=== PATIENT | female | born 1985 | race Caucasian/White ===

== ENCOUNTER 2018-06-27 09:49 | Inpatient (IN) | payer OTHER ==
[~2018-06-27] VITALS: Ht 180.3 cm; Wt 68.7 kg
[2018-06-27] MEDS ORDERED: QUET1TAB8 PO (09:57)
[2018-06-27] MEDS ORDERED: PANT40TA3 PO (09:57)
[2018-06-27] MEDS ORDERED: FOLI800C PO (09:57)
[2018-06-27] MEDS ORDERED: SERT-155 PO (09:57)
[2018-06-27] MEDS ORDERED: CLON2TAB7 PO (09:57)
[2018-06-27] MEDS ORDERED: NS 1,000 ML IV ONE (10:30)
[2018-06-27] MEDS ORDERED: PROMETHAZINE INJ 25 MG/ML VIAL (J2550) IV ONE (10:45)
[2018-06-27 11:00] LABS: BASO % 0.1 % (0.0-1.0); EOS # 0.1 10^3/uL (0.0-0.50); EOS % 0.7 % (0.0-3.0); HEMATOCRIT 38.9 % (36.0-47.0); HEMOGLOBIN 14.3 g/dl (12.0-15.5); LYMPH # 0.3 10^3/uL (1.5-4.5); MEAN CORPUSCULAR HEMOGLOBIN 33.7 pg (27.0-33.0); MEAN CORPUSCULAR VOLUME 91.7 fl (80.0-96.0); MONO # 0.7 10^3/uL (0.0-0.8); MONO % 9.7 % (0.0-5.0); NEUTROPHILS # 5.8 10^3/uL (1.8-7.7); NEUTROPHILS % 85.3 % (36.0-66.0); RED BLOOD COUNT 4.24 10^6/uL (4.00-5.40); WHITE BLOOD COUNT 6.8 10^3/uL (4.0-10.0)
[2018-06-27 11:28] LABS: MEAN CORPUSCULAR HGB CONC 36.8 g/dl (32.0-36.5); PLATELET COUNT, AUTOMATED 58 10^3/uL (150-450)
[2018-06-27 11:29] LABS: LYMPH % 3.8 % (24.0-44.0)
[2018-06-27 11:44] LABS: ALBUMIN 4.1 GM/DL (3.2-5.2); ALT/SGPT 160 U/L (12-78); BILIRUBIN,DIRECT 0.9 MG/DL (0.0-0.2); BILIRUBIN,TOTAL 2.1 MG/DL (0.2-1.0); BLOOD UREA NITROGEN 21 MG/DL (7-18); CALCIUM LEVEL 8.7 MG/DL (8.5-10.1); CARBON DIOXIDE LEVEL 27 MEQ/L (21-32); CHLORIDE LEVEL 75 MEQ/L (98-107); CREATININE FOR GFR 1.12 MG/DL (0.55-1.30); GLOMERULAR FILTRATION RATE 59.6 (>60); GLUCOSE, FASTING 123 MG/DL (70-100); LIPASE 2462 U/L (73-393); POTASSIUM SERUM 2.9 MEQ/L (3.5-5.1); SODIUM LEVEL 123 MEQ/L (136-145); TOTAL PROTEIN 8.4 GM/DL (6.4-8.2)
[2018-06-27 12:10] LABS: HCG, SERUM QUALITATIVE NEGATIVE (NEGATIVE)
[2018-06-27] MEDS ORDERED: POTASSIUM CHL PWD 20 MEQ PACKET As Ordered ONE (12:14)
[2018-06-27] MEDS: POTASSIUM CHLORIDE 10 MEQ SR TABLET PO ONE ×2 (12:17→12:37)
--- NOTE | 2018-06-27 12:40 | REP ---
Clinical: Pancreatitis. Technique: Real time lopez scale ultrasound examination using curved array transducer. Findings: Evidence of prior cholecystectomy. No biliary ductal dilatation is appreciated and the common bile duct measures 4.5 mm diameter. Liver is mildly increased echogenicity suggesting fatty infiltration without focal hepatic lesion. The pancreas is incompletely evaluated due to interposed bowel gas but visualized portions appear normal. The right kidney is normal in reniform shape without hydronephrosis and measures 12.2 x 4.8 x 5.0 cm. No ascites. Impression: No biliary ductal dilatation. No obvious choledocholithiasis. Hepatosteatosis. Electronically Signed by Sixto Lowry MD 06/27/2018 12:32 P
[2018-06-27] MEDS ORDERED: FOLI400T PO (13:26)
[2018-06-27] MEDS ORDERED: SERT-138 PO (13:26)
[2018-06-27] MEDS ORDERED: CLON1TAB8 PO (13:26)
[2018-06-27 13:29] LABS: OSMOLALITY SERUM 286 MOSM/KG (275-295)
[2018-06-27] MEDS ORDERED: ONDANSETRON 4MG/2ML VIAL (J2405) As Ordered ONE (13:33)
[2018-06-27 13:45] LABS: ACETAMINOPHEN LEVEL < 2.0 UG/ML (10.0-30.0); ETHYL ALCOHOL (ETHANOL) < 0.003 % (0.000-0.010); FREE T4 0.83 NG/DL (0.76-1.46); LDH LACTATE DEHYDROGENASE 261 U/L (84-246); MAGNESIUM LEVEL 1.4 MG/DL (1.8-2.4); PHOSPHORUS LEVEL 1.3 MG/DL (2.5-4.9); SALICYLATE LEVEL < 1.7 MG/DL (5.0-30.0)
[2018-06-27] MEDS ORDERED: ONDANSETRON 4MG/2ML VIAL (J2405) IV ONE (13:45)
[2018-06-27 13:54] LABS: AMPHETAMINES LEVEL URINE NEGATIVE (NEGATIVE); BARBITURATES URINE NEGATIVE (NEGATIVE); BENZODIAZEPINES URINE NEGATIVE (NEGATIVE); CANNABINOIDS URINE POSITIVE (NEGATIVE); COCAINE METABOLITE URINE NEGATIVE (NEGATIVE); METHADONE URINE NEGATIVE (NEGATIVE); OPIATES URINE NEGATIVE (NEGATIVE); PHENCYCLIDINE URINE NEGATIVE (NEGATIVE)
[2018-06-27] MEDS ORDERED: MORPHINE 4 MG/ML 1ML VIAL/SYRINGE (J2270) IV PRN (14:30)
[2018-06-27] MEDS ORDERED: PROCHLORPERAZINE 10 MG/2 ML VIAL (J0780) IV PRN (14:30)
[2018-06-27] MEDS ORDERED: LORazepam 2 MG TAB PO PRN (14:30)
[2018-06-27] MEDS ORDERED: PANTOPRAZOLE 40MG TAB (PROTONIX) PO PRN (14:30)
--- NOTE | 2018-06-27 15:05 | HPEPDOC ---
General Date of Admission 06.27.18 Chief Complaint The patient is a 32-year-old female admitted with a reason for visit of Vomitting. Source: Patient Exam Limitations: No limitations History of Present Illness This is a 32 y/o female with past medical history of hereditary hemochromatosis, depression and alcohol abuse who presents to the ED with complaint of mid- epigastric pain worsened with eating and vomiting for the past three days, the patient admits to recently binge drinking a fifth of vodka daily for the past 2 months, she apparently was sober for the prior year and a half but had some recent family strife which caused her to relapse. She states she knew she was withdrawing because she has also been very shaky with tremors as well and wanted to do so safely in the hospital. She recently moved from [place] to be with her boyfriend, whom she doesn't like to discuss her private medical information in front of. She denies history of IVDU but admits to occasional marijuana use, quit smoking cigarettes many years ago, no intra-nasal drug use in past. She adm its she hasn't had follow up with her financial business analyst or psychiatrist for many months and would like a referral to both once discharged. Denies headache or change in vision, no heart palpitations, no chest pain, no cough or SOB, no diarrhea or pain with urination or defecation. Appetite has been decreased as oral intake makes her epigastric discomfort worse. She states she still is experiencing b/l hand shakes/tremors in the ED today. She wants to stop abusing ETOH but is adamant about doing it on her own, wants no further help with ETOH cessation once discharged. She denies fevers, muscle aches or chills recently. Home Medications Scheduled Folic Acid (Folic Acid) 400 Mcg Tab, 400 MCG PO QHS, (Reported) Quetiapine Fumerate (Quetiapine Fumarate) 100 Mg Tab, 100 MG PO QHS, (Reported) Sertraline HCl (Sertraline HCl) 100 Mg Tab, 100 MG PO QHS, (Reported) Scheduled PRN Clonazepam (Clonazepam) 1 Mg Tab, 1 MG PO TID PRN for ANXIETY, (Reported) Pantoprazole Sodium (Pantoprazole Sodium) 40 Mg Tab, 40 MG PO DAILY PRN for HEARTBURN/INDIGESTION, (Reported) Allergies Coded Allergies: No Known Allergies (Unverified , 1/1/19) Past Medical History Medical History as per [facility] Surgical History cholecystectomy spinal fusion Social History * Smoker: former Smoker Alcohol: heavy Drugs: marijuana Recent Travel/Sick Contacts: Reports: Recent travel Psychosocial History: Anxiety, Depression 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, 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 Review of Systems Constitutional: Reports: Chills, Weakness, Fatigue; Denies: Fever, Night Sweats Pulmonary: Denies: Dyspnea, Cough Cardiovascular: Denies: Chest Pain, Palpitations, Edema, Lt Headedness Gastrointestinal: Reports: Nausea, Vomiting, Abdominal Pain; Denies: Diarrhea, Constipation, Melena Genitourinary: Denies: Dysuria Neurological: Reports: Weakness Physical Examination General Exam: Positive: Alert, Cooperative, Mild Distress Eye Exam: Positive: EOMI; Negative: Sclera icteric Chest Exam: Positive: Clear to auscultation, Normal air movement; Negative: Rales, Rhonchi, Wheezing, Diminished Heart Exam: Positive: Rate Normal, Normal S1, Normal S2; Negative: Murmurs, Rubs Abdomen Exam: Positive: Normal bowel sounds, Soft, Tenderness; Negative: Hepatospenomegaly, Mass Extremity Exam: Positive: Normal pulses; Negative: Clubbing, Cyanosis, Edema Skin Exam: Positive: Other skin issue (brusing on multiple extremities secondary to underlying blood d/o according to patient ) Neuro Exam: Positive: Normal Speech, Other (b/l hand tremors) Vital Signs Vital Signs Date Time Temp Pulse Resp B/P (MAP) Pulse Ox O2 Delivery O2 Flow Rate FiO2 06/27/18 14:30 119/90 (100) 06/27/18 14:19 95 98 06/27/18 09:49 98.3 18 Room Air Laboratory Data Labs 24H Laboratory Tests 2 06/27/18 10:46: Immature Granulocyte % (Auto) 0.4, White Blood Count 6.8, Red Blood Count 4.24, Hemoglobin 14.3, Hematocrit 38.9, Mean Corpuscular Volume 91.7, Mean Corpuscular Hemoglobin 33.7H, Mean Corpuscular Hemoglobin Concent 36.8H, Red Cell Distribution Width 11.3L, Platelet Count 58L, Neutrophils (%) (Auto) 85.3H, Lymphocytes (%) (Auto) 3.8L, Monocytes (%) (Auto) 9.7H, Eosinophils (%) (Auto) 0.7, Basophils (%) (Auto) 0.1, Neutrophils # (Auto) 5.8, Lymphocytes # (Auto) 0.3L, Monocytes # (Auto) 0.7, Eosinophils # (Auto) 0.1, Basophils # (Auto) 0.0, Nucleated Red Blood Cells % (auto) 0.0, Immature Platelet Fraction 7.6, Anion Gap 21H, Glomerular Filtration Rate 59.6L, Calcium Level 8.7, Aspartate Amino Transf (AST/SGOT) 235H, Alanine Aminotransferase (ALT/SGPT) 160H, Alkaline Phosphatase 223H, Total Bilirubin 2.1H, Direct Bilirubin 0.9H, Total Protein 8.4H, Albumin 4.1, Albumin/Globulin Ratio 0.95L, Lipase 2462H, Human Chorionic Gonadotropin, Qual NEGATIVE 06/27/18 12:35: Osmolality 286, Lactic Acid Level 1.2, Phosphorus Level 1.3L, Magnesium Level 1.4L, Lactate Dehydrogenase 261H, Thyroid Stimulating Hormone (TSH) 1.600, Free Thyroxine 0.83, Salicylates Level < 1.7L, Acetaminophen Level < 2.0L, Ethyl Alcohol Level < 0.003 06/27/18 13:08: Urine Random Osmolality 821H, Urine Random Creatinine 154.0, Urine Random Sodium 10, Urine Amphetamines Screen NEGATIVE, Urine Benzodiazepines Screen NEGATIVE, Urine Opiates Screen NEGATIVE, Urine Methadone Screen NEGATIVE, Urine Barbiturates Screen NEGATIVE, Urine Phencyclidine Screen NEGATIVE, Urine Cocaine Metabolite Screen NEGATIVE, Urine Cannabinoids Screen POSITIVEH CBC/BMP Laboratory Tests 06/27/18 10:46 Red Blood Count 4.24, Mean Corpuscular Volume 91.7, Mean Corpuscular Hemoglobin 33.7 H, Mean Corpuscular Hemoglobin Concent 36.8 H, Red Cell Distribution Width 11.3 L, Neutrophils (%) (Auto) 85.3 H, Lymphocytes (%) (Auto) 3.8 L, Monocytes (%) (Auto) 9.7 H, Eosinophils (%) (Auto) 0.7, Basophils (%) (Auto) 0.1, Neutrophils # (Auto) 5.8, Lymphocytes # (Auto) 0.3 L, Monocytes # (Auto) 0.7, Eosinophils # (Auto) 0.1, Basophils # (Auto) 0.0 Assessment/Plan 1. Acute pancreatitis secondary to heavy alcohol abuse -lipase elevated on presentation, abdominal u/s demonstrated No biliary ductal dilatation. No obvious choledocholithiasis. Hepatosteatosis. -Pt will be made NPO, morphine for pain -CIWA protocol in place, MV, thiamine, folate and Ativan -ETOH counseling was offered to patient -IVF d5/.45 NS @ 125 cc/hr, BMP will be q6h for 24 hours in light of hyponatremia -prochlorperazine maleate as zofran could prolong QT more, for n/v -tox screen + marijuana 2. Hyponatremia -Na 123 on presentation -pt received NS in ED -c/w d5/.45 NS @ 125 cc/hr, BMP q6h for 24 hours -urine studies ordered -continue to monitor closely -neuro checks q4h 3. electrolyte disturbances-hypomagnesia, hypokalemia and hypophosphatemia -recheck levels in AM -supplemented -EKG with borderline prolonged QTC, appreciated in ED -pt on telemetry 4. Transaminitis -likely secondary to heavy ETOH abuse and HH -Hepatitis panel pending -acetaminophen level WNL on tox. screen -continue to monitor 5. Depression/anxiety -c/w home medications -patient will likely need psych ref on outpatient dc 6. Hereditary hemochromatosis -labs reviewed -patient will need financial business analyst ref on outpatient d.c 7. DVT px -scd/teds Plan / VTE VTE Prophylaxis Ordered?: Yes GME ATTESTATION GME ATTESTATION My faculty preceptor for this patient encounter was physically present during the encounter and was fully available. All aspects of the patient interview, examination, medical decision making process, and medical care plan development were reviewed and approved by the faculty preceptor. The faculty preceptor is aware and concurs with the plan as stated in the body of this note and will atte st to such by his/her cosignature. ATTENDING NOTE Pt seen and examined. Agree w A/P as above. Also needs psych and GI for hemachromatosis followup on discharge CATE GARIBAY DO Jun 27, 2018 15:05 ANANT MORAN MD Jun 27, 2018 21:37
[2018-06-27] MEDS: MAG SULF 1GM/100ML (MAG RUN) 1 GM in APPROPRIATE DILUENT 1 EA IV SCH ×4 (15:21→19:37)
[2018-06-27] MEDS: D5W/0.45% SODIUM CHLORIDE 1,000 ML IV SCH ×2 (15:21→22:30)
[2018-06-27] MEDS ORDERED: diphenhydrAMINE INJ 50MG/ML VIAL (J1200) IV STA (15:38)
[2018-06-27] MEDS ORDERED: POTASSIUM PHOSPHATE INJ 15 MMOL in D5W 250 ML IV ONE (16:00)
[2018-06-27 16:09] VITALS: BP 130/92
[2018-06-27] MEDS: MULTIVITAMINS/MINERALS THERAP 1 TAB PO SCH (16:24)
[2018-06-27] MEDS: THIAMINE 100 MG TAB PO SCH ×2 (16:25→19:39)
[2018-06-27] MEDS: FOLIC ACID 1 MG TAB PO SCH (16:26)
[2018-06-27 16:30] VITALS: BP 130/92
[2018-06-27 17:36] LABS: BLOOD UREA NITROGEN 19 MG/DL (7-18); CALCIUM LEVEL 8.1 MG/DL (8.5-10.1); CARBON DIOXIDE LEVEL 29 MEQ/L (21-32); CHLORIDE LEVEL 83 MEQ/L (98-107); CREATININE FOR GFR 1.06 MG/DL (0.55-1.30); GLOMERULAR FILTRATION RATE > 60.0 (>60); GLUCOSE, FASTING 92 MG/DL (70-100); POTASSIUM SERUM 3.1 MEQ/L (3.5-5.1); SODIUM LEVEL 125 MEQ/L (136-145)
[2018-06-27] MEDS: MORPHINE 4 MG/ML 1ML VIAL/SYRINGE (J2270) IV PRN (19:38)
[2018-06-27] MEDS: SERTRALINE 100 MG TAB PO SCH (20:46)
[2018-06-27] MEDS: QUEtiapine FUMARATE 100 MG TAB PO SCH (20:46)
[2018-06-27 22:00] VITALS: BP 118/86
[2018-06-27 23:55] LABS: BLOOD UREA NITROGEN 14 MG/DL (7-18); CALCIUM LEVEL 8.1 MG/DL (8.5-10.1); CARBON DIOXIDE LEVEL 34 MEQ/L (21-32); CHLORIDE LEVEL 83 MEQ/L (98-107); CREATININE FOR GFR 1.03 MG/DL (0.55-1.30); GLOMERULAR FILTRATION RATE > 60.0 (>60); GLUCOSE, FASTING 108 MG/DL (70-100); POTASSIUM SERUM 3.8 MEQ/L (3.5-5.1); SODIUM LEVEL 127 MEQ/L (136-145)
[2018-06-28] MEDS: MORPHINE 4 MG/ML 1ML VIAL/SYRINGE (J2270) IV PRN (04:39)
[2018-06-28 06:00] VITALS: BP 117/60
[2018-06-28 06:24] LABS: BLOOD UREA NITROGEN 12 MG/DL (7-18); CALCIUM LEVEL 8.1 MG/DL (8.5-10.1); CARBON DIOXIDE LEVEL 35 MEQ/L (21-32); CHLORIDE LEVEL 85 MEQ/L (98-107); CREATININE FOR GFR 0.98 MG/DL (0.55-1.30); GLOMERULAR FILTRATION RATE > 60.0 (>60); GLUCOSE, FASTING 111 MG/DL (70-100); MAGNESIUM LEVEL 3.1 MG/DL (1.8-2.4); PHOSPHORUS LEVEL 1.8 MG/DL (2.5-4.9); SODIUM LEVEL 128 MEQ/L (136-145)
[2018-06-28] MEDS: D5W/0.45% SODIUM CHLORIDE 1,000 ML IV SCH ×2 (06:30→15:19)
[2018-06-28 07:30] LABS: BASO % 0.2 % (0.0-1.0); HEMOGLOBIN 12.7 g/dl (12.0-15.5); LYMPH # 0.5 10^3/uL (1.5-4.5); LYMPH % 11.4 % (24.0-44.0); MEAN CORPUSCULAR HEMOGLOBIN 33.8 pg (27.0-33.0); MEAN CORPUSCULAR HGB CONC 35.3 g/dl (32.0-36.5); MEAN CORPUSCULAR VOLUME 95.7 fl (80.0-96.0); MONO # 0.4 10^3/uL (0.0-0.8); MONO % 8.8 % (0.0-5.0); NEUTROPHILS # 3.3 10^3/uL (1.8-7.7); NEUTROPHILS % 78.4 % (36.0-66.0); RED BLOOD COUNT 3.76 10^6/uL (4.00-5.40); WHITE BLOOD COUNT 4.2 10^3/uL (4.0-10.0)
[2018-06-28 08:25] LABS: PLATELET COUNT, AUTOMATED 41 10^3/uL (150-450)
[2018-06-28] MEDS ORDERED: POTASSIUM PHOSPHATE INJ 15 MMOL in D5W 250 ML IV ONE (09:00)
[2018-06-28] MEDS: FOLIC ACID 1 MG TAB PO SCH (09:02)
[2018-06-28] MEDS: THIAMINE 100 MG TAB PO SCH ×2 (09:03→20:07)
[2018-06-28] MEDS: MULTIVITAMINS/MINERALS THERAP 1 TAB PO SCH (09:03)
--- NOTE | 2018-06-28 09:08 | IPNPDOC ---
Subjective Date Seen The patient was seen on 06/28/18. Subjective Chief Complaint/HPI . General: Reports: Fatigue; Denies: Chills Pulmonary: Denies: Dyspnea, Cough Cardiovascular: Denies: Chest Pain, Palpitations Gastrointestinal: Reports: Abdominal Pain (improved from admission drastically, almost resolved completely); Denies: Nausea, Vomiting Genitourinary: Denies: Dysuria Musculoskeletal: Reports: Other Symptoms (b/l hand tremors resolved) Neurological: Reports: Weakness Psych: Reports: Mood Normal Objective Physical Examination General Exam: Positive: Alert, Cooperative, Mild Distress Eye Exam: Positive: EOMI; Negative: Sclera icteric Chest Exam: Positive: Clear to auscultation, Normal air movement; Negative: Rales, Rhonchi, Wheezing, Diminished Heart Exam: Positive: Rate Normal, Normal S1, Normal S2; Negative: Murmurs, Rubs Abdomen Exam: Positive: Normal bowel sounds, Soft; Negative: Tenderness, Hepatospenomegaly, Mass Extremity Exam: Positive: Normal pulses; Negative: Clubbing, Cyanosis, Edema Skin Exam: Positive: Other skin issue (brusing on multiple extremities secondary to underlying blood d/o according to patient ) Neuro Exam: Positive: Normal Speech, Other (b/l hand tremors seem resolved ) Assessment /Plan Assessment 1. Acute pancreatitis secondary to heavy alcohol abuse -lipase elevated on presentation, abdominal u/s demonstrated No biliary ductal dilatation. No obvious choledocholithiasis. Hepatosteatosis. -Pt NPO, morphine for pain, abdominal pain drastically better today, can consider advancing diet to clears and see how she does, if she tolerates this well today can possibly d/c in AM -CIWA protocol in place, MV, thiamine, folate and Ativan -ETOH counseling was offered to patient -c/w IVF d5/.45 NS @ 125 cc/hr, BMP will be q6h for 24 hours in light of hypona tremia -prochlorperazine maleate as zofran could prolong QT more, for n/v -tox screen + marijuana 2. Hyponatremia -Na 123 on presentation, improved since admission, c/w current IVF -pt received NS in ED -c/w d5/.45 NS @ 125 cc/hr, BMP q6h for 24 hours -urine studies appreciated -continue to monitor closely -neuro checks q4h 3. electrolyte disturbances-hypomagnesia, hypokalemia and hypophosphatemia -recheck levels in AM this morning showed low K and phos again, supplemented, Mg elevated -supplemented -EKG with borderline prolonged QTC, appreciated in ED 4. Transaminitis -likely secondary to heavy ETOH abuse and HH -Hepatitis panel pending -acetaminophen level WNL on tox. screen -continue to monitor 5. Thrombocytopenia -likely secondary to BM suppression from chronic and heavy ETOH abuse/use -continue to monitor for now for improvement since ETOH cessation 6. Depression/anxiety -c/w home medications -patient will likely need psych ref on outpatient dc 7. Hereditary hemochromatosis -labs reviewed -patient will need pharmacists ref on outpatient d.c -liver profile pending 8. DVT px -scd/teds Plan/VTE VTE Prophylaxis Ordered?: Yes VS, I&O, 24H, Fishbone Vital Signs/I&O Vital Signs Date Time Temp Pulse Resp B/P (MAP) Pulse Ox O2 Delivery O2 Flow Rate FiO2 06/28/18 06:00 70 117/60 06/28/18 06:00 96.8 17 98 Room Air I&O- Last 24 Hours up to 6 AM 06/28/18 06:00 Intake Total 1200 ml Output Total 500 ml Balance 700 ml Laboratory Data 24H LABS Laboratory Tests 2 06/27/18 10:46: Immature Granulocyte % (Auto) 0.4, White Blood Count 6.8, Red Blood Count 4.24, Hemoglobin 14.3, Hematocrit 38.9, Mean Corpuscular Volume 91.7, Mean Corpuscular Hemoglobin 33.7H, Mean Corpuscular Hemoglobin Concent 36.8H, Red Cell Distribution Width 11.3L, Platelet Count 58L, Neutrophils (%) (Auto) 85.3H, Lymphocytes (%) (Auto) 3.8L, Monocytes (%) (Auto) 9.7H, Eosinophils (%) (Auto) 0.7, Basophils (%) (Auto) 0.1, Neutrophils # (Auto) 5.8, Lymphocytes # (Auto) 0.3L, Monocytes # (Auto) 0.7, Eosinophils # (Auto) 0.1, Basophils # (Auto) 0.0, Nucleated Red Blood Cells % (auto) 0.0, Immature Platelet Fraction 7.6, Anion Gap 21H, Glomerular Filtration Rate 59.6L, Calcium Level 8.7, Aspartate Amino Transf (AST/SGOT) 235H, Alanine Aminotransferase (ALT/SGPT) 160H, Alkaline Phosphatase 223H, Total Bilirubin 2.1H, Direct Bilirubin 0.9H, Total Protein 8.4H, Albumin 4.1, Albumin/Globulin Ratio 0.95L, Lipase 2462H, Human Chorionic Gonadotropin, Qual NEGATIVE 06/27/18 12:35: Osmolality 286, Lactic Acid Level 1.2, Phosphorus Level 1.3L, Magnesium Level 1.4L, Lactate Dehydrogenase 261H, Thyroid Stimulating Hormone (TSH) 1.600, Free Thyroxine 0.83, Salicylates Level < 1.7L, Acetaminophen Level < 2.0L, Ethyl Alcohol Level < 0.003 06/27/18 13:08: Urine Random Osmolality 821H, Urine Random Creatinine 154.0, Urine Random Sodium 10, Urine Amphetamines Screen NEGATIVE, Urine Benzodiazepines Screen NEGATIVE, Urine Opiates Screen NEGATIVE, Urine Methadone Screen NEGATIVE, Urine Barbiturates Screen NEGATIVE, Urine Phencyclidine Screen NEGATIVE, Urine Cocaine Metabolite Screen NEGATIVE, Urine Cannabinoids Screen POSITIVEH 06/27/18 16:51: Anion Gap 13, Glomerular Filtration Rate > 60.0, Calcium Level 8.1L, Blood Urea Nitrogen 19H, Creatinine 1.06, Sodium Level 125L, Potassium Level 3.1L, Chloride Level 83L, Carbon Dioxide Level 29 06/27/18 23:13: Anion Gap 10, Glomerular Filtration Rate > 60.0, Blood Urea Nitrogen 14, Creatinine 1.03, Sodium Level 127L, Potassium Level 3.8#, Chloride Level 83L, Carbon Dioxide Level 34H, Calcium Level 8.1L 06/28/18 05:20: Immature Granulocyte % (Auto) 0.2, White Blood Count 4.2, Red Blood Count 3.76L, Hemoglobin 12.7, Hematocrit 36.0, Mean Corpuscular Volume 95.7, Mean Corpuscular Hemoglobin 33.8H, Mean Corpuscular Hemoglobin Concent 35.3, Red Cell Dist ribution Width 11.5, Platelet Count 41#L, Neutrophils (%) (Auto) 78.4H, Lymphocytes (%) (Auto) 11.4L, Monocytes (%) (Auto) 8.8H, Eosinophils (%) (Auto) 1.0, Basophils (%) (Auto) 0.2, Neutrophils # (Auto) 3.3, Lymphocytes # (Auto) 0.5L, Monocytes # (Auto) 0.4, Eosinophils # (Auto) 0.0, Basophils # (Auto) 0.0, Nucleated Red Blood Cells % (auto) 0.0 06/28/18 05:23: Anion Gap 8, Glomerular Filtration Rate > 60.0, Blood Urea Nitrogen 12, Creatinine 0.98, Sodium Level 128L, Potassium Level 3.0#L, Chloride Level 85L, Carbon Dioxide Level 35H, Calcium Level 8.1L, Phosphorus Level 1.8#L, Magnesium Level 3.1H CBC/BMP Laboratory Tests 06/27/18 10:46 Red Blood Count 4.24, Mean Corpuscular Volume 91.7, Mean Corpuscular Hemoglobin 33.7 H, Mean Corpuscular Hemoglobin Concent 36.8 H, Red Cell Distribution Width 11.3 L, Neutrophils (%) (Auto) 85.3 H, Lymphocytes (%) (Auto) 3.8 L, Monocytes (%) (Auto) 9.7 H, Eosinophils (%) (Auto) 0.7, Basophils (%) (Auto) 0.1, N eutrophils # (Auto) 5.8, Lymphocytes # (Auto) 0.3 L, Monocytes # (Auto) 0.7, Eosinophils # (Auto) 0.1, Basophils # (Auto) 0.0 06/27/18 16:51 Calcium Level 8.1 L 06/27/18 23:13 Calcium Level 8.1 L 06/28/18 05:20 Red Blood Count 3.76 L, Mean Corpuscular Volume 95.7, Mean Corpuscular Hemoglobin 33.8 H, Mean Corpuscular Hemoglobin Concent 35.3, Red Cell Distribution Width 11.5, Neutrophils (%) (Auto) 78.4 H, Lymphocytes (%) (Auto) 11.4 L, Monocytes (%) (Auto) 8.8 H, Eosinophils (%) (Auto) 1.0, Basophils (%) (Auto) 0.2, Neutrophils # (Auto) 3.3, Lymphocytes # (Auto) 0.5 L, Monocytes # (Auto) 0.4, Eosinophils # (Auto) 0.0, Basophils # (Auto) 0.0 06/28/18 05:23 Calcium Level 8.1 L GME ATTESTATION GME ATTESTATION My faculty preceptor for this patient encounter was physically present during the encounter and was fully available. All aspects of the patient interview, examination, medical decision making process, and medical care plan development were reviewed and approved by the faculty preceptor. The faculty preceptor is aware and concurs with the plan as stated in the body of this note and will attest to such by his/her cosignature. CATE GARIBAY DO Jun 28, 2018 09:08
[2018-06-28 10:56] LABS: HEPATITIS B SURFACE ANTIGEN NEGATIVE (NEGATIVE)
[2018-06-28 11:23] LABS: HEPATITIS B CORE ANTIBODY IGM NEGATIVE (NEGATIVE); HEPATITIS C VIRUS ABY INDEX 0.1 INDEX (<0.8)
[2018-06-28 11:26] LABS: HEPATITIS A ANTIBODY IGM NEGATIVE (NEGATIVE)
[2018-06-28 13:28] LABS: ALBUMIN 3.6 GM/DL (3.2-5.2); ALT/SGPT 138 U/L (12-78); BILIRUBIN,DIRECT 0.8 MG/DL (0.0-0.2); BILIRUBIN,TOTAL 1.7 MG/DL (0.2-1.0); BLOOD UREA NITROGEN 10 MG/DL (7-18); CALCIUM LEVEL 8.3 MG/DL (8.5-10.1); CARBON DIOXIDE LEVEL 32 MEQ/L (21-32); CHLORIDE LEVEL 85 MEQ/L (98-107); CREATININE FOR GFR 0.78 MG/DL (0.55-1.30); GLOMERULAR FILTRATION RATE > 60.0 (>60); GLUCOSE, FASTING 67 MG/DL (70-100); POTASSIUM SERUM 3.1 MEQ/L (3.5-5.1); SODIUM LEVEL 127 MEQ/L (136-145); TOTAL PROTEIN 7.7 GM/DL (6.4-8.2)
[2018-06-28 14:00] VITALS: BP 123/84
--- NOTE | 2018-06-28 16:46 | ECGEPIP ---
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
[2018-06-28] MEDS: clonazePAM 1 MG TAB PO PRN (20:07)
[2018-06-28] MEDS: QUEtiapine FUMARATE 100 MG TAB PO SCH (20:07)
[2018-06-28] MEDS: SERTRALINE 100 MG TAB PO SCH (20:07)
[2018-06-28 22:00] VITALS: BP 116/78
[2018-06-29] MEDS: D5W/0.45% SODIUM CHLORIDE 1,000 ML IV SCH ×2 (00:56→08:53)
[2018-06-29] MEDS: clonazePAM 1 MG TAB PO PRN (04:36)
[2018-06-29 06:00] VITALS: BP 122/64
[2018-06-29 06:07] LABS: BASO % 0.6 % (0.0-1.0); EOS # 0.1 10^3/uL (0.0-0.50); EOS % 2.9 % (0.0-3.0); HEMATOCRIT 33.1 % (36.0-47.0); HEMOGLOBIN 11.6 g/dl (12.0-15.5); LYMPH # 0.6 10^3/uL (1.5-4.5); LYMPH % 18.5 % (24.0-44.0); MEAN CORPUSCULAR HEMOGLOBIN 33.7 pg (27.0-33.0); MEAN CORPUSCULAR VOLUME 96.2 fl (80.0-96.0); MONO # 0.6 10^3/uL (0.0-0.8); MONO % 17.8 % (0.0-5.0); NEUTROPHILS # 1.9 10^3/uL (1.8-7.7); NEUTROPHILS % 59.2 % (36.0-66.0); RED BLOOD COUNT 3.44 10^6/uL (4.00-5.40); WHITE BLOOD COUNT 3.1 10^3/uL (4.0-10.0)
[2018-06-29 06:20] LABS: PLATELET COUNT, AUTOMATED 45 10^3/uL (150-450)
[2018-06-29 06:45] LABS: ALBUMIN 3.1 GM/DL (3.2-5.2); ALT/SGPT 112 U/L (12-78); BILIRUBIN,TOTAL 1.3 MG/DL (0.2-1.0); BLOOD UREA NITROGEN 7 MG/DL (7-18); CALCIUM LEVEL 7.9 MG/DL (8.5-10.1); CARBON DIOXIDE LEVEL 30 MEQ/L (21-32); CHLORIDE LEVEL 94 MEQ/L (98-107); CREATININE FOR GFR 0.49 MG/DL (0.55-1.30); GLOMERULAR FILTRATION RATE > 60.0 (>60); GLUCOSE, FASTING 109 MG/DL (70-100); POTASSIUM SERUM 3.2 MEQ/L (3.5-5.1); SODIUM LEVEL 134 MEQ/L (136-145); TOTAL PROTEIN 6.9 GM/DL (6.4-8.2)
[2018-06-29 07:00] VITALS: BP 98/68
[2018-06-29 08:05] LABS: FERRITIN 1380 NG/ML (8-252)
[2018-06-29] MEDS: MULTIVITAMINS/MINERALS THERAP 1 TAB PO SCH (08:53)
[2018-06-29] MEDS: FOLIC ACID 1 MG TAB PO SCH (08:53)
[2018-06-29] MEDS: THIAMINE 100 MG TAB PO SCH (08:53)
--- NOTE | 2018-06-29 09:07 | DS.PDOC ---
Discharge Summary General Date of Admission Jun 27, 2018 at 15:09 Date of Discharge 06/29/18 Discharge Summary PROCEDURES PERFORMED DURING STAY: None ADMITTING DIAGNOSES: 1. Acute pancreatitis secondary to heavy alcohol abuse 2. Hyponatremia 3. electrolyte disturbances-hypomagnesia, hypokalemia and hypophosphatemia 4. Transaminitis 5. Depression/anxiety 6. Hereditary hemochromatosis 7. DVT px DISCHARGE DIAGNOSES: 1. Acute pancreatitis secondary to heavy alcohol abuse 2. Hyponatremia 3. electrolyte disturbances-hypomagnesia, hypokalemia and hypophosphatemia 4. Transaminitis 5. Thrombocytopenia 6. Depression/anxiety 7. Hereditary hemochromatosis COMPLICATIONS/CHIEF COMPLAINT: Alcohol Withdrawal Pancreatitis. HISTORY OF PRESENT ILLNESS: 32 y/o female presented to the ED on 06.27.18 with the complaint of mid epigastric pain and n/v after excessive ETOH use. Admitted for pancreatitis. HOSPITAL COURSE: During the course of the patients hospital stay she was made NPO, given IVF and pain control for her abdominal discomfort. She was found to be thrombocytopenic and hyponatremic on presentation as well, her Na levels were corrected slowly and appropriately with IVF. The patient was slowly advanced to clear liquid diet which she tolerated well and then eventually to a regular diet which she also tolerated well with cessation of abdominal pain, nausea and vomiting. She does have a history of hereditary hemochromatosis and her ferritin levels were pending on day of d/c., she does need referral to local acupuncturist, PCP and psychiatrist which we help facilitate for her. Patient was counseled on importance of alcohol cessation, denied wanting help with rehab/therapy once discharged and stated she will quit on her own. DISCHARGE MEDICATIONS: Please see below. ALLERGIES: Please see below. PHYSICAL EXAMINATION ON DISCHARGE: VITAL SIGNS: Please see below. GENERAL: NAD, comfortable, sleeping in bed resting HEENT: EOMI, nares patent b/l, moist mucus membranes NECK: supple CARDIOVASCULAR EXAMINATION: normal s1 and s2., no murmurs, rubs or gallops appreciated RESPIRATORY EXAMINATION: CTA b/l, no wheezing, rhonchi or rales appreciated on exam ABDOMINAL EXAMINATION: soft, nabsx4, no distension, no rebound, no guarding, no hepatosplenomegaly, no pain to palpation EXTREMITIES: no edema, cyanosis or mottling SKIN: intact NEUROLOGICAL EXAMINATION: without focal deficit PSYCHIATRIC EXAMINATION: affect is appropriate LABORATORY DATA: Please see below. IMAGING: Abdominal u/s 06.27.18 Impression: No biliary ductal dilatation. No obvious choledocholithiasis. Hepatosteatosis. PROGNOSIS: stable ACTIVITY: As tolerated DIET: as tolerated DISCHARGE PLAN: home DISPOSITION: stable DISCHARGE INSTRUCTIONS: 1. Please follow up with PCP, acupuncturist and psychiatrist within 7-10 days of d/c. Please stop excessive ETOH use. DISCHARGE CONDITION: Stable TIME SPENT ON DISCHARGE: Greater than 35 minutes. Vital Signs/I&Os Vital Signs Date Time Temp Pulse Resp B/P (MAP) Pulse Ox O2 Delivery O2 Flow Rate FiO2 06/29/18 07:00 98.0 65 16 98/68 (78) 100 Room Air I&O- Last 24 Hours up to 6 AM 06/29/18 06:00 Intake Total 4240 ml Output Total 1650 ml Balance 2590 ml Laboratory Data Labs 24H Laboratory Tests 2 06/28/18 12:37: Anion Gap 10, Glomerular Filtration Rate > 60.0, Calcium Level 8.3L, Aspartate Amino Transf (AST/SGOT) 249H, Alanine Aminotransferase (ALT/SGPT) 138H, Alkaline Phosphatase 212H, Total Bilirubin 1.7H, Direct Bilirubin 0.8H, Total Protein 7.7, Albumin 3.6, Albumin/Globulin Ratio 0.88L 06/29/18 05:50: Anion Gap 10, Glomerular Filtration Rate > 60.0, Calcium Level 7.9L, Aspartate Amino Transf (AST/SGOT) 171H, Alanine Aminotransferase (ALT/SGPT) 112H, Alkaline Phosphatase 206H, Total Bilirubin 1.3H, Total Protein 6.9, Albumin 3.1L, Albumin/Globulin Ratio 0.82L, Immature Granulocyte % (Auto) 1.0, White Blood Count 3.1L, Red Blood Count 3.44L, Hemoglobin 11.6L, Hematocrit 33.1L, Mean Corpuscular Volume 96.2H, Mean Corpuscular Hemoglobin 33.7H, Mean Corpuscular Hemoglobin Concent 35.0, Red Cell Distribution Width 11.1L, Platelet Count 45L, Neutrophils (%) (Auto) 59.2, Lymphocytes (%) (Auto) 18.5L, Monocytes (%) (Auto) 17.8H, Eosinophils (%) (Auto) 2.9, Basophils (%) (Auto) 0.6, Neutrophils # (Auto) 1.9, Lymphocytes # (Auto) 0.6L, Monocytes # (Auto) 0.6, Eosinophils # (Auto) 0.1, Basophils # (Auto) 0.0, Nucleated Red Blood Cells % (auto) 0.0, Immature Platelet Fraction 10.3H, Blood Urea Nitrogen 7, Creatinine 0.49L, Sodium Level 134#L, Potassium Level 3.2L, Chloride Level 94L, Carbon Dioxide Level 30, Ferritin 1380H CBC/BMP Laboratory Tests 06/28/18 12:37 06/29/18 05:50 Red Blood Count 3.44 L, Mean Corpuscular Volume 96.2 H, Mean Corpuscular Hemoglobin 33.7 H, Mean Corpuscular Hemoglobin Concent 35.0, Red Cell Distribution Width 11.1 L, Neutrophils (%) (Auto) 59.2, Lymphocytes (%) (Auto) 18.5 L, Monocytes (%) (Auto) 17.8 H, Eosinophils (%) (Auto) 2.9, Basophils (%) (Auto) 0.6, Neutrophils # (Auto) 1.9, Lymphocytes # (Auto) 0.6 L, Monocytes # (Auto) 0.6, Eosinophils # (Auto) 0.1, Basophils # (Auto) 0.0, Calcium Level 7.9 L, Aspartate Amino Transf (AST/SGOT) 171 H, Alanine Aminotransferase (ALT/SGPT) 112 H, Alkaline Phosphatase 206 H, Total Bilirubin 1.3 H, Total Protein 6.9, Albumin 3.1 L Discharge Medications Scheduled Folic Acid (Folic Acid) 400 Mcg Tab, 400 MCG PO QHS, (Reported) Quetiapine Fumerate (Quetiapine Fumarate) 100 Mg Tab, 100 MG PO QHS, (Reported) Sertraline HCl (Sertraline HCl) 100 Mg Tab, 100 MG PO QHS, (Reported) Scheduled PRN Clonazepam (Clonazepam) 1 Mg Tab, 1 MG PO TID PRN for ANXIETY, (Reported) Pantoprazole Sodium (Pantoprazole Sodium) 40 Mg Tab, 40 MG PO DAILY PRN for HEARTBURN/INDIGESTION, (Reported) Allergies Coded Allergies: No Known Allergies (Unverified , 06/27/18) GME ATTESTATION GME ATTESTATION My faculty preceptor for this patient encounter was physically present during the encounter and was fully available. All aspects of the patient interview, examination, medical decision making process, and medical care plan development were reviewed and approved by the faculty preceptor. The faculty preceptor is aware and concurs with the plan as stated in the body of this note and will attest to such by his/her cosignature. CATE GARIBAY DO Jun 29, 2018 09:07
[2018-06-29] MEDS ORDERED: VITMTA PO (09:50)
[2018-06-29] MEDS ORDERED: THIA100TA PO (09:50)
[2018-06-29] MEDS ORDERED: POTASSIUM CHLORIDE 10 MEQ SR TABLET PO ONE (10:30)
[2018-06-29] MEDS ORDERED: CLON0.5T8 PO (10:41)
[2018-06-29] MEDS ORDERED: SERT-138 PO ×2 (10:42→10:52)
[2018-06-29] MEDS ORDERED: PANT40TA3 PO ×2 (10:42→10:52)
[2018-06-29] MEDS ORDERED: FOLI400T PO (10:42)
[2018-06-29] MEDS ORDERED: QUET1TAB8 PO ×2 (10:42→10:52)
== END 2018-06-29 12:10 | disposition home or self-care (01) | DRG 282 ==
LOC: M ED 09:49 → M ED INP 15:09 → M MSPAV 16:17
PROVIDERS: ADMIT Internal Medicine; ATTEND Internal Medicine Nephrology
DX: K85.20 Alcohol induced acute pancreatitis without necrosis or infection (principal); D69.6 Thrombocytopenia, unspecified; E83.42 Hypomagnesemia; E83.39 Other disorders of phosphorus metabolism; E87.1 Hypo-osmolality and hyponatremia; E87.6 Hypokalemia; E83.110 Hereditary hemochromatosis; R74.0 Nonspecific elevation of levels of transaminase and lactic acid dehydrogenase [LDH]; F41.9 Anxiety disorder, unspecified; F32.9 Major depressive disorder, single episode, unspecified; Z79.899 Other long term (current) drug therapy; Z87.891 Personal history of nicotine dependence; F10.10 Alcohol abuse, uncomplicated

== ENCOUNTER → 2018-07-07 | Outpatient (REF) | payer OTHER ==
[~2018-07-07] MED LIST: CLON0.5T8 PO; CLON1TAB8 PO; CLON2TAB7 PO; FOLI400T PO; FOLI800C PO; PANT40TA3 PO; QUET1TAB8 PO; SERT-138 PO; SERT-155 PO; THIA100TA PO; VITMTA PO
[2018-07-07 16:28] LABS: HEMATOCRIT 36.5 % (36.0-47.0); HEMOGLOBIN 11.9 g/dl (12.0-15.5); MEAN CORPUSCULAR HEMOGLOBIN 33.8 pg (27.0-33.0); MEAN CORPUSCULAR HGB CONC 32.6 g/dl (32.0-36.5); MEAN CORPUSCULAR VOLUME 103.7 fl (80.0-96.0); PLATELET COUNT, AUTOMATED 252 10^3/uL (150-450); RED BLOOD COUNT 3.52 10^6/uL (4.00-5.40); WHITE BLOOD COUNT 5.2 10^3/uL (4.0-10.0)
[2018-07-07 16:35] LABS: ALBUMIN 3.7 GM/DL (3.2-5.2); ALT/SGPT 42 U/L (12-78); BILIRUBIN,TOTAL 0.3 MG/DL (0.2-1.0); BLOOD UREA NITROGEN 16 MG/DL (7-18); CALCIUM LEVEL 9.4 MG/DL (8.5-10.1); CARBON DIOXIDE LEVEL 30 MEQ/L (21-32); CHLORIDE LEVEL 101 MEQ/L (98-107); CREATININE FOR GFR 0.61 MG/DL (0.55-1.30); GLOMERULAR FILTRATION RATE > 60.0 (>60); GLUCOSE, FASTING 129 MG/DL (70-100); IRON (FE) 68 UG/DL (50-170); MAGNESIUM LEVEL 1.7 MG/DL (1.8-2.4); PERCENT SATURATION 23.5 % (13.2-45.0); PHOSPHORUS LEVEL 5.1 MG/DL (2.5-4.9); SODIUM LEVEL 138 MEQ/L (136-145); TOTAL IRON BINDING CAPACITY 289 UG/DL (250-450); TOTAL PROTEIN 7.2 GM/DL (6.4-8.2)
[2018-07-07 16:48] LABS: HEMOGLOBIN A1c 4.5 %
[2018-07-11 00:07] LABS: ALPHA 1 ANTITRYPSIN 154 mg/dL (90-200); ANTI-SMOOTH MUSCLE ANTIBODY 18 Units (0-19); ANTINUCLEAR ANTIBODIES DIRECT Negative (Negative); CERULOPLASMIN 23.1 mg/dL (19.0-39.0)
== END ==
LOC: M SFHCPLAZ 13:23
DX: E83.42 Hypomagnesemia (principal); E87.1 Hypo-osmolality and hyponatremia; E83.39 Other disorders of phosphorus metabolism; R73.9 Hyperglycemia, unspecified; D69.6 Thrombocytopenia, unspecified; R74.0 Nonspecific elevation of levels of transaminase and lactic acid dehydrogenase [LDH]; E83.110 Hereditary hemochromatosis

== ENCOUNTER → 2018-08-04 | Outpatient (CLI) | payer OTHER ==
[~2018-08-04] MED LIST changes: +STOO100C PO; +THIA100T7 PO
--- NOTE | 2018-08-06 12:59 | ECHO ---
DATE OF PROCEDURE: 08/04/2018 AGE: 32 GENDER: Female. Height 70 inches Weight 163 pounds Body surface area 1.91 m2 REFERRING PHYSICIAN: Dr. Hicks INDICATION: Hemachromatosis. MEASUREMENTS 2-D MEASUREMENTS: RV - 3.1 cm LV - 4.6 cm Septum 0.8 cm Posterior wall 0.8 cm Aortic root 3.0 cm LA - 2.8 cm LVEF 75% DOPPLER MEASUREMENTS: AV - 1.06 ms LVOT - 0.95 ms LVOT diameter 2.0 cm MV-E 63, A 87, E:A ratio 0.7 Early mitral deceleration time 140 milliseconds E prime 9.4, A prime 7, E/E prime ratio 6.7 PCWP - 6.9 mmHg PV - 0.75 ms Pulmonary artery acceleration time 113 milliseconds RVSP 23 mmHg IVC - 1.6 cm COMMENTS: Normal sinus rhythm without intraventricular conduction disturbance. M-mode and two-dimensional echocardiography was performed with pulsed, continuous wave, color flow and tissue Doppler studies. Normal left ventricular size, wall thickness and hyperkinetic wall motion. Normal left atrial size and Doppler assessment of LV diastolic function and estimated mean left atrial pressure. Normal right heart chamber sizes and motion and estimated pulmonary arterial pressure. Normal IVC size and collapse against an elevated central venous pressure. Normal appearing and functioning valvular structures. Normal aortic root size. No apparent intracardiac mass or pericardial effusion.
== END ==
LOC: M CARPUL 11:33
PROVIDERS: ATTEND Internal Medicine Hematology & Oncology
DX: E83.119 Hemochromatosis, unspecified (principal)

== ENCOUNTER 2018-10-13 11:16 | Emergency (ER) | payer OTHER ==
[~2018-10-13] VITALS: Ht 180.3 cm; Wt 76.4 kg
[~2018-10-13 11:16] MED LIST changes: +CIPR-250 PO
[2018-10-13] MEDS ORDERED: ACETAMINOPHEN TAB 650MG DOSE (2X325MG) PO ONE (12:15)
--- NOTE | 2018-10-13 13:14 | REP ---
Right knee series: Five views. History: Swelling and tenderness. Findings: Five views of the right knee demonstrate normal bones, joints and soft tissues. No fracture or subluxation is seen. No evidence of joint effusion. Impression: Negative radiographs of the right knee. Electronically Signed by Toby Santamaria MD 10/13/2018 01:06 P
--- NOTE | 2018-10-13 13:15 | REP ---
Left ankle series: Four views. History: Swelling and tenderness. Findings: Four views of the left ankle demonstrate intact ankle mortise. No fractures seen. Soft tissues are unremarkable. Impression: Negative radiographs of the left ankle. Electronically Signed by Toby Santamaria MD 10/13/2018 01:07 P
[2018-10-13 13:42] VITALS: BP 123/82
--- NOTE | 2018-10-13 15:18 | REP ---
Left tib-fib series: Four views. History: Swelling and tenderness. Findings: Four views of the left tibia and fibula demonstrate normal bones, joints, and soft tissues. No fracture or subluxation is seen. Impression: Negative left calf radiographs. Electronically Signed by Toby Santamaria MD 10/13/2018 03:09 P
== END 2018-10-13 14:00 | disposition home or self-care (01) ==
LOC: M ED 11:16
DX: S93.402A Sprain of unspecified ligament of left ankle, initial encounter (principal); X50.9XXA Other and unspecified overexertion or strenuous movements or postures, initial encounter; Y92.89 Other specified places as the place of occurrence of the external cause; F41.9 Anxiety disorder, unspecified; K21.9 Gastro-esophageal reflux disease without esophagitis; M41.9 Scoliosis, unspecified; E83.119 Hemochromatosis, unspecified; Z79.899 Other long term (current) drug therapy

== ENCOUNTER → 2018-10-20 | Outpatient (CLI) | payer OTHER ==
[~2018-10-20] MED LIST changes: +RA B1TAB7 PO; +VITA50TA47 PO
--- NOTE | 2018-10-20 12:22 | REP ---
Left lower extremity Duplex Doppler venous ultrasound: Real time compression and duplex Doppler interrogation of the left lower extremity deep venous system is performed. The left common femoral, superficial femoral and popliteal veins are fully compressible with transducer pressure and demonstrate normal spontaneous and phasic flow, without evidence of deep venous thrombosis. Impression: No evidence of deep venous thrombosis of the left lower extremity femoral popliteal venous system. Lobulated complex popliteal cyst measures 1.9 x 1.4 x 1.0 cm. Electronically Signed by Patrick Elizabeth MD 10/20/2018 12:13 P
== END ==
LOC: M RAD 11:21
PROVIDERS: ATTEND Family Medicine
DX: M71.21 Synovial cyst of popliteal space [Baker], right knee (principal)

== ENCOUNTER 2018-10-24 18:15 | Emergency (ER) | payer OTHER ==
[~2018-10-24] VITALS: Ht 180.3 cm; Wt 75.0 kg
[~2018-10-24 18:15] MED LIST changes: -RA B1TAB7 PO; -VITA50TA47 PO
[2018-10-24] MEDS ORDERED: VITA50TA47 PO (18:22)
[2018-10-24] MEDS ORDERED: RA B1TAB7 PO (18:22)
--- NOTE | 2018-10-24 20:16 | REPVR ---
EXAM: US Duplex Left Lower Extremity Veins, Limited EXAM DATE/TIME: 10/24/2018 7:53 PM CLINICAL HISTORY: 33 years old, female; Signs and symptoms; Edema, localized; Lower extremity, left TECHNIQUE: Imaging protocol: Real-time Duplex ultrasound of the Left Lower Extremity with 2-D lopez scale, color Doppler flow and spectral waveform analysis. Limited exam focused on the left lower extremity veins. COMPARISON: US Duplex, Ext,LOWER veins,unilat LEFT 10/20/2018 11:34 AM FINDINGS: Left deep veins: Unremarkable. The common femoral, femoral and popliteal veins are patent without thrombus. Normal compressibility, augmentation response and Doppler waveforms. Left superficial veins: Unremarkable. Saphenofemoral junction is patent without thrombus. Soft tissues: Unremarkable. IMPRESSION: No sonographic evidence of deep vein thrombosis. Electronically signed by: Charlie Cheatham On 10/24/2018 20:16:05 PM
[2018-10-24 20:48] VITALS: BP 122/71
== END 2018-10-24 20:52 | disposition home or self-care (01) ==
LOC: M ED 18:15
DX: M79.662 Pain in left lower leg (principal)

== ENCOUNTER → 2019-02-16 | Outpatient (CLI) | payer OTHER ==
[~2019-02-16] MED LIST changes: +CLON0.5T2 PO; -CLON0.5T8 PO; +MM S100C PO; +RA B1TAB7 PO; -SERT-155 PO; +SERT50TA29 PO; -STOO100C PO; +VITA50TA47 PO
--- NOTE | 2019-02-16 10:47 | REP ---
MRI LEFT LOWER LEG: Multiple sequences were obtained in the axial, coronal, and sagittal planes without the use of intravenous contrast material. The tibia and fibula demonstrate normal bone marrow signal. There is no bone marrow edema or occult fracture. There is no evidence of periostitis. Normal low signal is seen in the cortex of both the tibia and fibula. Surrounding soft-tissue structures demonstrate no abnormal signal. There is no evidence of significant stain or tear of the visualized tendons or muscles. The Achilles tendon demonstrates no abnormal signal, with no evidence of significant tendonitis or tear. No definite cystic or solid is seen in the soft-tissues. IMPRESSION: Essentially negative MRI left lower leg. Electronically Signed by Patrick Elizabeth MD 02/16/2019 10:59 A
== END ==
LOC: M RAD 08:15
PROVIDERS: ATTEND Physician Assistant
DX: S86.012D Strain of left Achilles tendon, subsequent encounter (principal)

== ENCOUNTER → 2019-02-16 | Outpatient (CLI) | payer OTHER ==
--- NOTE | 2019-02-16 10:15 | REP ---
Splenic ultrasound for splenomegaly: The spleen measures 11.1 x 4.8 x 12.3 cm for a splenic index of 655.3. The spleen is upper normal size. There are no splenic masses or cysts. The left kidney is incidentally evaluated measuring 11.1 x 4 point by 4.2 cm and is normal size. There are no left renal masses or fluid collections. Electronically Signed by Patrick Macedo MD 02/16/2019 10:06 A
== END ==
LOC: M RAD 08:12
PROVIDERS: ATTEND Internal Medicine
DX: R16.1 Splenomegaly, not elsewhere classified (principal)

== ENCOUNTER → 2019-05-11 | Outpatient (REF) | payer OTHER, MEDICAID ==
[~2019-05-11] MED LIST changes: -CLON0.5T2 PO; +CLON0.5T8 PO
[2019-05-15 14:07] LABS: HPV HYBRID CAPTURE II Negative (Negative)
== END ==
LOC: M SFHCPLAZ 17:19
PROVIDERS: ATTEND Internal Medicine
DX: Z12.4 Encounter for screening for malignant neoplasm of cervix (principal); B37.3 Candidiasis of vulva and vagina